=== PATIENT | male | born 1950 | race Asian ===

== ENCOUNTER → 2017-12-27 | Outpatient (CLI) | payer OTHER ==
[2017-12-27 10:10] LABS: HEMOGLOBIN A1C 8.6 % (4.5-6.2)
[2017-12-27 10:27] LABS: CHOL/HDL RATIO 4.2 (4.2-7.3)
== END | disposition home or self-care (01) ==
LOC: LABPV 07:34
PROVIDERS: ATTEND Internal Medicine
DX: E78.2 Mixed hyperlipidemia (principal); E11.9 Type 2 diabetes mellitus without complications
CPT/HCPCS: 82043; 82570; 83036